=== PATIENT | female | born 1980 | race Caucasian/White ===

== ENCOUNTER 2016-11-24 22:06 | Emergency (ER) | payer MEDICARE, OTHER, BC ==
[~2016-11-24] VITALS: Ht 167.6 cm; Wt 60.5 kg
[2016-11-24 22:09] VITALS: Ht 167.6 cm; Wt 60.5 kg
[2016-11-24] MEDS ORDERED: ACETAMINOPHEN 500 MG TAB PO STA (22:36)
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
--- NOTE | 2016-11-25 | RADRPT ---
PROCEDURE: XR left Shoulder. CLINICAL INDICATION: Trauma. Pain. TECHNIQUE: Three views of the left shoulder are available for review. COMPARISON: None available FINDINGS: No acute fracture or dislocation is seen. The glenohumeral joint is unremarkable. The acromioclavi cular joint is intact. The visualized portions of the left clavicle and upper left rib cage are unr emarkable. No radiopaque foreign body is identified. Bone mineralization is within normal limits. Soft tissues are unremarkable. IMPRESSION: 1. Unremarkable left shoulder x-ray series. 2. No acute fracture or dislocation is seen. RPTAT: HMVK .José Antonio Mason MD, Date Time Electronically viewed and signed by .José Antonio Mason MD, on 11/25/2016 00:00 .K/
--- NOTE | 2016-11-25 | RADRPT ---
PROCEDURE: XR Cervical Spine. CLINICAL INDICATION: Trauma. Pain. TECHNIQUE: Four AP, lateral and odontoid views of the cervical spine were performed. The images we re reviewed on a PACS workstation. COMPARISON: None. FINDINGS: No fracture is identified. There is maintenance of height of the vertebral bodies and disk spaces. There is reversal of the normal cervical lordosis. Alignment is otherwise maintained without spond ylolisthesis. Bone mineralization is within normal limits. Prevertebral soft tissues are unremarka ble. IMPRESSION: Reversal of the normal cervical lordosis most commonly seen with muscle spasm. Otherwise no acute p ost traumatic abnormality. RPTAT: HMVK .José Antonio Mason MD, MD Date Time Electronically viewed and signed by .José Antonio Mason MD, on 11/24/2016 23:59 .K/
--- NOTE | 2016-11-25 00:02 | RADRPT ---
PROCEDURE: XR Right Hip. CLINICAL INDICATION: Trauma. Pain. TECHNIQUE: AP and frog lateral views of the right hip were performed. COMPARISON: None. FINDINGS: No fracture or osseous lesion is identified. Joint relationships are maintained. There is no dislo cation. Bone mineralization is within normal limits. The soft tissues are unremarkable. IMPRESSION: 1. Unremarkable right hip x-rays series. RPTAT: HMVK .José Antonio Mason MD, MD Date Time Electronically viewed and signed by .José Antonio Mason MD, on 11/25/2016 00:01 .K/
[2016-11-25] MEDS ORDERED: ACET500C5 PO (00:18)
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
[2016-11-25 00:34] VITALS: BP 120/81; PULSE 74; RESP 17
== END 2016-11-25 00:35 | disposition home or self-care (01) ==
LOC: FTE 22:06
DX: S49.92XA Unspecified injury of left shoulder and upper arm, initial encounter (principal); S29.9XXA Unspecified injury of thorax, initial encounter; V49.40XA Driver injured in collision with unspecified motor vehicles in traffic accident, initial encounter
CPT/HCPCS: 71010; 72040; 73030; 73510

== ENCOUNTER 2019-01-05 17:04 | Emergency (ER) | payer MEDICARE, OTHER, BC ==
[~2019-01-05] VITALS: Ht 170.2 cm; Wt 54.0 kg
[~2019-01-05 17:04] MED LIST: ACET500C5 PO; HYDR26CR PR; PHEN1SUP80 PR
[2019-01-05 17:37] VITALS: Ht 170.2 cm; Wt 54.0 kg
[2019-01-05 20:10] VITALS: BP 126/78; PULSE 90; RESP 18
== END 2019-01-05 20:10 | disposition home or self-care (01) ==
LOC: FTE 17:04
DX: K64.5 Perianal venous thrombosis (principal)
CPT/HCPCS: 99284